=== PATIENT | female | born 2000 | race Caucasian/White ===

== ENCOUNTER 2019-03-29 21:04 | Emergency (ER) | payer BC ==
[2019-03-29] MEDS ORDERED: Ibuprofen TAB* 600 MG PO ONE (21:22)
[2019-03-29] MEDS ORDERED: Famotidine TAB* 20 MG PO ONE (21:38)
[2019-03-29] MEDS ORDERED: predniSONE TAB* 20 MG PO ONE (21:38)
[2019-03-29] MEDS ORDERED: diPHENhydraMINE PO* 50 MG PO ONE (21:38)
[2019-03-29] MEDS ORDERED: Azithromycin TAB* 250 MG PO ONE (21:39)
--- NOTE | 2019-03-29 22:56 | ED ---
Throat Pain/Nasal Congestion - HPI Summary HPI Summary: Patient complains of nasal congestion, facial pressure, headache, 1 week, and hives starting last night on chest and back and arms. Rash is pruritic. Patient seen at [facility] today for same symptoms. Discharged with diagnosis of viral syndrome. Denies fever, cough, sore throat, CP, SOB, N/V/D, abdominal pain, change in urine, change in BM. Ankle history is bipolar. 650 mg Tylenol 2 hours prior to arrival. - History of Current Complaint Chief Complaint: EDAllergicReaction Time Seen by Provider: 03/29/19 21:21 Hx Obtained From: Patient Onset/Duration: Gradual Onset, Lasting Days Severity: Moderate Associated Signs And Symptoms: Positive: Sinus Discomfort, Nasal Discharge Cough: None - Allergies/Home Medications Allergies/Adverse Reactions: Allergies Allergy/AdvReac Type Severity Reaction Status Date / Time No Known Allergies Allergy Verified 03/29/19 21:09 PMH/Surg Hx/FS Hx/Imm Hx Endocrine/Hematology History: Denies: Hx Anticoagulant Therapy Cardiovascular History: Denies: Hx Pacemaker/ICD History: Denies: Hx Dialysis Sensory History: Denies: Hx Eye Prosthesis Opthamlomology History: Denies: Hx Legally Blind EENT History: Denies: Hx Deafness Neurological History: Denies: Hx Dementia Infectious Disease History: No Infectious Disease History: Denies: Traveled Outside the [place] in Last 30 Days - Family History Known Family History: Positive: Non-Contributory - Social History Alcohol Use: None Substance Use Type: Reports: Marijuana Smoking Status (MU): Former Smoker Review of Systems Constitutional: Negative Eyes: Negative Positive: Nasal Discharge. Negative: Sore Throat, Ear Ache Cardiovascular: Negative Respiratory: Negative Gastrointestinal: Negative Genitourinary: Negative Musculoskeletal: Negative Positive: Rash Positive: Headache Psychological: Normal All Other Systems Reviewed And Are Negative: Yes Physical Exam Triage Information Reviewed: Yes Vital Signs On Initial Exam: Initial Vitals Temp Pulse Resp BP Pulse Ox 101 F 106 20 114/79 97 03/29/19 21:07 03/29/19 21:07 03/29/19 21:07 03/29/19 21:07 03/29/19 21:07 Vital Signs Reviewed: Yes Appearance: Positive: Well-Appearing Skin: Positive: Warm ENT: Positive: Nasal congestion, Nasal drainage, TMs normal, Sinus tenderness, Uvula midline. Negative: Tonsillar swelling, Tonsillar exudate, Trismus, Muffled voice, Hoarse voice, Dental tenderness Neck: Positive: Supple Respiratory/Lung Sounds: Positive: Clear to Auscultation Cardiovascular: Positive: Normal Abdomen Description: Positive: Nontender Musculoskeletal: Positive: Normal Neurological: Positive: Normal Psychiatric: Positive: Normal AVPU Assessment: Alert - Cactus Coma Scale Best Eye Response: 4 - Spontaneous Best Motor Response: 6 - Obeys Commands Best Verbal Response: 5 - Oriented Coma Scale Total: 15 Procedures - Sedation Patient Received Moderate/Deep Sedation with Procedure: No Diagnostics - Vital Signs Vital Signs Temp Pulse Resp BP Pulse Ox 03/29/19 22:00 77 17 113/73 97 03/29/19 21:29 100 121/85 96 03/29/19 21:07 101 F 106 20 114/79 97 - Laboratory Lab Statement: Any lab studies that have been ordered have been reviewed, and results considered in the medical decision making process. EENT Course/Dx - Course Course Of Treatment: Patient complains of nasal congestion, facial pressure, headache, 1 week, and hives starting last night on chest and back and arms. Rash is pruritic. Patient seen at [facility] today for same symptoms. Discharged with diagnosis of viral syndrome. Denies fever, cough, sore throat, CP, SOB, N/V/D, abdominal pain, change in urine, change in BM. Ankle history is bipolar. 650 mg Tylenol 2 hours prior to arrival. Vital signs within normal limits. Rx for azithromycin and prednisone. - Diagnoses Provider Diagnoses: Hives, Sinusitis Discharge ED - Sign-Out/Discharge Documenting (check all that apply): Patient Departure - Discharge Plan Condition: Stable Disposition: HOME Prescriptions: Azithromycin 250 mg PO DAILY 4 Days #4 tablet predniSONE TAB* [Deltasone 20 MG TAB*] 40 mg PO DAILY 5 Days #10 tab Patient Education Materials: Urticaria (ED), Sinusitis (ED) Referrals: No Primary Care Phys,NOPCP [Primary Care Provider] - Additional Instructions: Alternate ibuprofen 600 mg with Tylenol 650 mg every 3 hours as needed for sinus pain. Take antibiotics as directed for sinusitis. Take prednisone once daily for rash. Return to the ED for any worsening symptoms. - Billing Disposition and Condition Condition: STABLE Disposition: Home
[2019-03-29 23:17] VITALS: BP 109/69
== END 2019-03-29 23:15 | disposition home or self-care (01) ==
LOC: ED 21:04
DX: J32.9 Chronic sinusitis, unspecified (principal); L50.9 Urticaria, unspecified; Z87.891 Personal history of nicotine dependence
CPT/HCPCS: 99283; A9270-GY; J7512